=== PATIENT | female | born 1970 | race Asian ===

== ENCOUNTER 2016-05-29 14:46 | Emergency (ER) | payer BC ==
--- NOTE | ~2016-05-29 | CT71 ---
[facility] A Service of [facility] RADIOLOGY TEXT RESULTS PATIENT: SYL KEARNS LOCATION: [facility] : 72 UNIT #: [id number] AGE: [address]: Theron Kat MD SEX: F ORDER DR: [id number] [facility] [address] [place], [place] [address] [id number] E MR#: [id number] Acc #: [id number] NAME: SYL KEARNS : 1970 SEX: F STUDY DATE/TIME: 05/29/2016 15:04 UNIT: [facility] ROOM: STUDY DESCRIPTION: CT Head Wo Contrast Attending Physician: Theron Kat M.D. Referring Physician: Self Referral-Refer Use Only Ordering Physician: Theron Kat M.D. Primary Care Physician: Primary Care Physician No MEDICAL IMAGING REPORT This report is preliminary unless electronic signature is present EXAM CT head, 05/29/2016 HISTORY Dizzy for 3 days. Numbness in arm. TECHNIQUE This CT exam was performed with one or more of the following radiation dose reduction techniques: automatic exposure control, adjustment of mA and/or kV according to patient size, and iterative reconstruction. FINDINGS CT head performed skull base through vertex without intravenous contrast. No prior CTs for comparison. The brainstem is unremarkable. The cerebellum and cerebral hemispheres show normal sauer matter-white matter differentiation. No hemorrhage. No evidence of acute cortical ischemia. The midline structures are nondisplaced and the basal ganglia are intact. The ventricles, cisterns and sulci show normal size and contour. No intra or extraaxial mass effect and no abnormal intracranial fluid collection. Visualized intraorbital soft tissues unremarkable. Mucosal thickening in the right frontal sinus and bilateral ethmoid air cells. IMPRESSION 1. Brain appears normal. If the patient has ongoing neurologic symptoms, consider follow-up imaging, preferably with MRI if the patient is a candidate. 2. Mucosal thickening in the right frontal sinus and bilateral ethmoid air cells. Dictated by... [facility] A Service of [facility] RADIOLOGY TEXT RESULTS PATIENT: SYL KEARNS LOCATION: [facility] : 72 UNIT #: [id number] AGE: [address]: Theron Kat MD SEX: F ORDER DR: Bull Dutta M.D. THIS IS AN ELECTRONICALLY VERIFIED REPORT Bull Dutta M.D. at 06/01/2016 6:08 PM Raul TD: 05/30/2016 10:46 JOB #: [id number] MEDICAL IMAGING REPORT Page 1 of 1 COPY
--- NOTE | ~2016-05-29 | EKG ---
PATIENT: SYL KEARNS UNIT #: [id number] Ventricular Rate: 58 BPM Atrial Rate: 58 BPM P-R Interval: 138 ms QRS Duration: 80 ms Q-T Interval: 456 ms QTC Calculation(Bezet): 447 ms P [place]: 9 degrees Calculated R [place]: 62 degrees Calculated T [place]: 13 degrees Diagnosis Line: Sinus bradycardia Diagnosis Line: Poor R wave progression questionable lead position Diagnosis Line: or body habitus Diagnosis Line: Otherwise normal ECG Diagnosis Line: No previous ECGs available Diagnosis Line: Confirmed by DREW TORREZ MD ([id number]) on 05/30/2016 Diagnosis Line: 2:50:18 PM INTERPRETING MD: SHAN BRYANT
[2016-05-29 15:03] LABS: BASOPHIL% 0.6 % (0-2.5); DIFF IND NO; EOSINOPHIL# 0.2 X10e3 (0-0.7); EOSINOPHIL% 2.7 % (0.0-7.0); HEMATOCRIT 42.6 % (35.0-45.0); HEMOGLOBIN 14.4 gm/dL (12.0-16.0); LYMPHOCYTE# 2.3 X10e3 (1.0-3.5); LYMPHOCYTE% 26.8 % (17.0-45.0); MEAN CELL VOLUME 88.2 FL (83-96); MEAN CORPUSCULAR HEMOGLOBIN 29.8 PG (28-34); MEAN CORPUSCULAR HGB CONC 33.8 g/dL (30-36); MEAN PLATELET VOLUME 8.7 FL (6.5-11.5); MONOCYTE# 0.5 X10e3 (0-1.0); MONOCYTE% 5.2 % (3.0-12.0); NEUTROPHIL# 5.6 X10e3 (1.5-7.1); NEUTROPHIL% 64.7 % (40-75); PLATELET COUNT 252 X10e3 (140-420); RED BLOOD COUNT 4.83 X10e (3.90-5.30); RED CELL DISTRIBUTION WIDTH 12.2 % (11.0-15.5); WHITE BLOOD COUNT 8.7 X10e3 (4.0-10.5)
[2016-05-29 15:30] LABS: ALBUMIN SERUM 4.3 g/dL (3.5-5.0); BILIRUBIN, DIRECT 0.1 mg/dL (0.0-0.2); BILIRUBIN,INDIRECT 1.3 mg/dL (0.0-0.9); BILIRUBIN,TOTAL 1.4 mg/dL (0.2-2.0); CALCIUM SERUM 9.1 mg/dL (8.4-10.2); CREATININE SERUM 0.6 mg/dL (0.6-1.4); GLOM FILT RATE Estimated 110.9 mL/min (>60); POTASSIUM 3.8 mmol/L (3.5-5.1)
[2016-05-29 16:10] LABS: URINE SOURCE CLEAN CATCH
[2016-05-29 16:18] LABS: URINE APPEARANCE CLEAR; URINE BILIRUBIN NEG (NEG); URINE BLOOD 1+ (NEG); URINE COLOR YELLOW; URINE GLUCOSE NEG (NEG); URINE KETONE NEG (NEG); URINE LEUKOCYTE ESTERASE TRACE (NEG); URINE NITRATE NEG (NEG); URINE PROTEIN NEG (NEG); URINE SPECIFIC GRAVITY 1.003 (1.003-1.035); URINE UROBILINOGEN 0.2 MG/DL (NEG)
[2016-05-29 16:20] LABS: URINE BACTERIA AUWI NEG (NEGATIVE); URINE SQUAMOUS EPITHELIAL CELL NONE SEEN /[HPF]
[2016-05-29 16:29] LABS: CULTURE INDICATED? NO
== END 2016-05-29 16:50 | disposition home or self-care (01) ==
LOC: CED 14:46
PROVIDERS: Emergency Medicine
DX: R42 Dizziness and giddiness (principal); R20.9 Unspecified disturbances of skin sensation
CPT/HCPCS: 36415; 70450; 80048; 80076; 81003; 84703; 85025; 93005; 96360; 99284